=== PATIENT | male | born 1940 | race Caucasian/White ===

== ENCOUNTER 2018-04-25 10:45 | Observation (INO) | payer OTHER ==
--- NOTE | 2018-04-25 13:01 | PDOC ---
History of Present Illness - History of Present Illness Initial Comments: The patient is a 77 year old male, with a significant PMH of falls and seizures , who was brought in to the emergency department today by his family because they feel he is unsafe secondary to his diffuse weakness. Patient complains of progressively worsening diffuse weakness. Patient has not had any frequent falls, but is visibly bruised. He has an unsteady gait, and at baseline is supposed to ambulate with a rolling walker but repeatedly forgets to do so, which is the major source of his falling. The patient denies chest pain, shortness of breath, headache and dizziness. Denies fever, chills, nausea, vomit, diarrhea and constipation. Denies dysuria, frequency, urgency and hematuria. Allergies: NKA Past surgical history: None reported Social history: No reported PCP: Dr. Vigil 04/25/18 14:53 <Wendy Mondragon - Last Filed: 04/25/18 15:01> - General History Source: Patient Exam Limitations: No Limitations <Shayy Newton - Last Filed: 04/27/18 10:14> - General Chief Complaint: Weakness Stated Complaint: WEAKNESS Time Seen by Provider: 04/25/18 12:54 Past History <Wendy Mondragon - Last Filed: 04/25/18 15:01> - Past Medical History Cardiac Disorders: Yes (low) COPD: No Dementia: Yes Seizures: Yes - Suicide/Smoking/Psychosocial Hx Smoking History: Never smoked Information on smoking cessation initiated: No Hx Alcohol Use: No Drug/Substance Use Hx: No <Shayy Newton - Last Filed: 04/27/18 10:14> - Past Medical History Allergies/Adverse Reactions: Allergies Allergy/AdvReac Type Severity Reaction Status Date / Time Penicillins Allergy Verified 04/25/18 11:08 Home Medications: Ambulatory Orders Carbamazepine 200 mg PO BID 04/25/18 Review of Systems - Review of Systems Comments:: GENERAL/CONSTITUTIONAL: +Diffuse weakness. No fever or chills. HEAD, EYES, EARS, NOSE AND THROAT: No change in vision. No ear pain or discharge. No sore throat. CARDIOVASCULAR: No chest pain or shortness of breath. RESPIRATORY: No cough, wheezing, or hemoptysis. GASTROINTESTINAL: No nausea, vomiting, diarrhea or constipation. GENITOURINARY: No dysuria, frequency, or change in urination. MUSCULOSKELETAL: No joint or muscle swelling or pain. No neck or back pain. SKIN: +Multiple ecchymosis diffusely. No rash NEUROLOGIC: No headache, vertigo, loss of consciousness, or change in strength/ sensation. ENDOCRINE: No increased thirst. No abnormal weight change. HEMATOLOGIC/LYMPHATIC: No anemia, easy bleeding, or history of blood clots. ALLERGIC/IMMUNOLOGIC: No hives or skin allergy. 04/25/18 14:53 <Wendy Mondragon - Last Filed: 04/25/18 15:01> *Physical Exam - Vital Signs Last Vital Signs Temp Pulse Resp BP Pulse Ox 98.2 F 80 20 140/82 97 04/25/18 14:39 04/25/18 14:39 04/25/18 14:39 04/25/18 14:39 04/25/18 14:39 - Physical Exam Comments: GENERAL: The patient is awake and answering all quesitons. The patient is in no acute distress. HEAD: Normal with no signs of trauma. EYES: PERRLA, EOMI, sclera anicteric, conjunctiva clear. ENT: +Deformed nasal bridge secondary to multiple falls. Ears normal, nares patent, oropharynx clear without exudates. Moist mucous membranes. NECK: Normal range of motion, supple without lymphadenopathy, JVD, or masses. LUNGS: Breath sounds equal, clear to auscultation bilaterally. No wheezes, and no crackles. HEART:Regular rate and rhythm, normal S1 and S2 without murmur, rub or gallop. ABDOMEN: +Right chest wall deformity secondary to multiple falls. Soft, nontender, normoactive bowel sounds. No guarding, no rebound. No masses palpable. EXTREMITIES: +Right knee deformity secondary to multiple falls. 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 Able to move all extremities. No edema. No clubbing or cyanosis. No erythema, or tenderness. NEUROLOGICAL: Cranial nerves II through XII grossly intact. Normal speech. No focal neurological deficits. MUSCULOSKELETAL: Back non-tender to palpation, no CVA tenderness SKIN: +Multiple ecchymosis all over body. Warm, Dry, normal turgor, no rashes or lesions noted. 04/25/18 14:56 <Wendy Mondragon - Last Filed: 04/25/18 15:01> - Vital Signs Last Vital Signs Temp Pulse Resp BP Pulse Ox 98.1 F 88 19 145/88 97 04/25/18 11:04 04/25/18 11:04 04/25/18 11:04 04/25/18 11:04 04/25/18 11:04 <Shayy Newton - Last Filed: 04/27/18 10:14> Moderate Sedation - Procedure Monitoring Vital Signs: Procedure Monitoring Vital Signs Temperature 98.2 F 04/25/18 14:39 Pulse Rate 80 04/25/18 14:39 Respiratory Rate 20 04/25/18 14:39 Blood Pressure 140/82 04/25/18 14:39 O2 Sat by Pulse Oximetry (%) 97 04/25/18 14:39 <Wendy Mondragon - Last Filed: 04/25/18 15:01> - Procedure Monitoring Vital Signs: Procedure Monitoring Vital Signs Temperature 98.1 F 04/25/18 11:04 Pulse Rate 88 04/25/18 11:04 Respiratory Rate 19 04/25/18 11:04 Blood Pressure 145/88 04/25/18 11:04 O2 Sat by Pulse Oximetry (%) 97 04/25/18 11:04 <Shayy Newton - Last Filed: 04/27/18 10:14> ED Treatment Course - LABORATORY CBC & Chemistry Diagram: 04/25/18 13:54 04/25/18 13:54 - ADDITIONAL ORDERS Additional order review: Laboratory Results 04/25/18 04/25/18 13:54 13:54 PT with INR 12.50 INR 1.06 Sodium 139 Potassium 4.4 Chloride 107 Carbon Dioxide 27 Anion Gap 5 L BUN 20 H Creatinine 0.8 Creat Clearance w eGFR > 60 Random Glucose 174 H Calcium 8.4 L Total Bilirubin 0.2 AST 22 ALT 40 Alkaline Phosphatase 143 H Total Protein 6.8 Albumin 3.5 04/25/18 13:54 RBC 4.27 MCV 92.9 MCHC 35.0 RDW 13.6 MPV 7.9 Neutrophils % 62.0 Lymphocytes % 22.8 Monocytes % 8.2 Eosinophils % 6.0 H Basophils % 1.0 - RADIOLOGY Radiograph Interpretation: EXAM#: TYPE/EXAM: RESULT: [id number] RAD/CHEST X-RAY PORTABLE* Impression. No evidence of active pulmonary disease. Reported By: Fransisco Leal MD 04/25/18 13:18 EXAM#: TYPE/EXAM: RESULT: [id number] CT/HEAD CT WITHOUT CONTRAST IMPRESSION: No CT evidence of acute intracranial pathology. Status post left parietal craniectomy. Gyral calcifications are seen within the subjacent parietal lobe with associated contiguous encephalomalacia and mild to moderate focal atrophy - ? due to tuberous sclerosis, versus representing the sequela of previous injury, inflammation/infection. There is also less prominent left occipital gyral calcification. Sinonasal polyposis. Displaced bilateral nasal fractures which appear to be chronic. Correlate clinically. Reported By: Cesario Parr MD 04/25/18 14:49 04/25/18 15:01 <Wendy Mondragon - Last Filed: 04/25/18 15:01> - LABORATORY CBC & Chemistry Diagram: 04/25/18 13:54 04/25/18 13:54 <Shayy Newton - Last Filed: 04/27/18 10:14> Medical Decision Making - Medical Decision Making 04/25/18 14:15 Mr ross is a pleasant 77 yo M who presents to the ER with family due to concerns about his safety at home He has had frequent falls and repeatedly injures himself He denies fevers, chills, chest pain, palpitations He denies shortness of breath He denies focal weakness or numbness EKG - NSR, rate of 66 bpm, axis nml, no st elevation or depression, LVH Will do labs Will do UA Will do CT Will re assess 04/27/18 10:12 Laboratory Tests 04/25/18 04/25/18 04/25/18 13:54 13:54 13:54 WBC 7.6 Hgb 13.9 Hct 39.7 Plt Count 332 INR 1.06 BUN 20 H Creatinine 0.8 Urine Blood Urine Nitrite Ur Leukocyte Esterase 04/25/18 22:37 WBC Hgb Hct Plt Count INR BUN Creatinine Urine Blood Negative Urine Nitrite Negative Ur Leukocyte Esterase Negative CT - chronic changes, craniotomy, nasal bone deformities No ICH Will admit to dr Ibrahim Clinical Impression: frequent falls, initial presentation <Shayy Newton - Last Filed: 04/27/18 10:14> *DC/Admit/Observation/Transfer - Attestations Scribe Attestion: Documentation prepared by BRANDON Saldana, acting as medical surgical tech for Shayy Newton MD/DO. 04/25/18 14:56 <Wendy Mondragon - Last Filed: 04/25/18 15:01> - Discharge Dispostion Decision to Admit order: Yes <Shayy Newton - Last Filed: 04/27/18 10:14> Diagnosis at time of Disposition: Frequent falls - Discharge Dispostion Condition at time of disposition: Stable
[2018-04-25 14:04] LABS: HEMATOCRIT 39.7 % (35.4-49); HEMOGLOBIN 13.9 GM/dL (11.7-16.9); LYMPH % 22.8 % (8-40); MCH 32.5 pg (25.7-33.7); MEAN CELL VOLUME 92.9 fl (80-96); MEAN PLT VOLUME 7.9 fl (7.5-11.1); MONO % 8.2 % (3.8-10.2); PLATELET COUNT 332 K/MM3 (134-434); RBC 4.27 M/mm3 (4.00-5.60); RDW 13.6 % (11.9-15.9); WHITE BLOOD COUNT 7.6 K/mm3 (4.0-10.0)
[2018-04-25 14:20] LABS: INR 1.06 (0.83-1.09); PROTHROMBIN TIME (PATIENT) 12.5 SEC (9.7-13.0)
[2018-04-25 14:29] LABS: ALBUMIN 3.5 g/dl (3.4-5.0); ALK PHOS 143 U/L (45-117); ANION GAP 5 MMOL/L (8-16); BILIRUBIN,TOTAL 0.2 mg/dL (0.2-1); BLOOD UREA NITROGEN 20 mg/dL (7-18); CALCIUM 8.4 mg/dL (8.5-10.1); CHLORIDE 107 mmol/L (98-107); CO2 27 mmol/L (21-32); CREATININE 0.8 mg/dL (0.55-1.3); GLUCOSE,RANDOM 174 mg/dL (74-106); POTASSIUM 4.4 mmol/L (3.5-5.1); SGOT/AST 22 U/L (15-37); SGPT/ALT 40 U/L (13-61); SODIUM 139 mmol/L (136-145); TOT PROT 6.8 g/dl (6.4-8.2)
[2018-04-25 15:29] VITALS: BMI 22.2
[2018-04-25] MEDS ORDERED: FLU VACCINE QUAD 60 MCG/0.5 ML (MDV 18-19) IM ONE (15:31)
--- NOTE | 2018-04-25 15:45 | EKG ---
Test Reason : Blood Pressure : / mmHG Vent. Rate : 066 BPM Atrial Rate : 066 BPM P-R Int : 188 ms QRS Dur : 084 ms QT Int : 400 ms P-R-T Axes : 098 037 047 degrees QTc Int : 419 ms POOR DATA QUALITY, INTERPRETATION MAY BE ADVERSELY AFFECTED NORMAL SINUS RHYTHM MODERATE VOLTAGE CRITERIA FOR LVH, MAY BE NORMAL VARIANT BORDERLINE ECG NO PREVIOUS ECGS AVAILABLE Confirmed by SILVINO WHARTON, DAVID ([id number]) on 04/25/2018 3:45:48 PM Referred By: Confirmed By:DAVID DUBOIS MD
--- NOTE | 2018-04-25 17:27 | HP ---
Admitting History and Physical - Primary Care Physician PCP: Cecil Ibrahim - Admission Chief Complaint: weakness History of Present Illness: 77 year old male, with a significant PMH of falls and seizures, who was brought in to the emergency department today by his family because they feel he is unsafe secondary to his diffuse weakness. Patient complains of progressively worsening diffuse weakness. Patient has not had any frequent falls, but is visibly bruised. He has an unsteady gait, and at baseline is supposed to ambulate with a rolling walker but repeatedly forgets to do so, which is the major source of his falling. no fever or chills no cp or sob - Past Medical History [employer]: Yes: Seizure - Advance Directives Advance Directives: Yes: Health Care Proxy - Smoking History Smoking history: Never smoked - Alcohol/Substance Use Hx Alcohol Use: No Home Medications - Allergies Allergies/Adverse Reactions: Allergies Allergy/AdvReac Type Severity Reaction Status Date / Time Penicillins Allergy Verified 04/25/18 11:08 - Home Medications Home Medications: Ambulatory Orders Carbamazepine 200 mg PO BID 04/25/18 Physical Examination Vital Signs: Vital Signs Temperature 99.0 F 04/25/18 15:29 Pulse Rate 68 04/25/18 15:29 Respiratory Rate 18 04/25/18 15:29 Blood Pressure 152/74 04/25/18 15:29 O2 Sat by Pulse Oximetry (%) 98 04/25/18 15:38 Constitutional: Yes: No Distress Eyes: Yes: Conjunctiva Clear HENT: Yes: Atraumatic Neck: Yes: Supple Cardiovascular: Yes: Regular Rate and Rhythm Respiratory: Yes: CTA Bilaterally Gastrointestinal: Yes: Normal Bowel Sounds Extremities: Yes: WNL Edema: No Peripheral Pulses WNL: Yes Neurological: Yes: Alert, Oriented Labs: CBC, BMP 04/25/18 13:54 04/25/18 13:54 Imaging - Results Cat Scan: Report Reviewed Problem List - Problems (1) Frequent falls Assessment/Plan: pt eval family wants placement in [facility] Code(s): R29.6 - REPEATED FALLS Assessment/Plan Laboratory Results - last 24 hr 04/25/18 04/25/18 04/25/18 13:54 13:54 13:54 WBC 7.6 RBC 4.27 Hgb 13.9 Hct 39.7 MCV 92.9 MCH 32.5 MCHC 35.0 RDW 13.6 Plt Count 332 MPV 7.9 Absolute Neuts (auto) 4.7 Neutrophils % 62.0 Lymphocytes % 22.8 Monocytes % 8.2 Eosinophils % 6.0 H Basophils % 1.0 Nucleated RBC % 0 PT with INR 12.50 INR 1.06 Sodium 139 Potassium 4.4 Chloride 107 Carbon Dioxide 27 Anion Gap 5 L BUN 20 H Creatinine 0.8 Creat Clearance w eGFR > 60 Random Glucose 174 H Calcium 8.4 L Total Bilirubin 0.2 AST 22 ALT 40 Alkaline Phosphatase 143 H Total Protein 6.8 Albumin 3.5 Laboratory Tests 04/25/18 04/25/18 04/25/18 13:54 13:54 13:54 WBC 7.6 RBC 4.27 Hgb 13.9 Hct 39.7 MCV 92.9 MCH 32.5 MCHC 35.0 RDW 13.6 Plt Count 332 MPV 7.9 Absolute Neuts (auto) 4.7 Neutrophils % 62.0 Lymphocytes % 22.8 Monocytes % 8.2 Eosinophils % 6.0 H Basophils % 1.0 Nucleated RBC % 0 PT with INR 12.50 INR 1.06 Sodium 139 Potassium 4.4 Chloride 107 Carbon Dioxide 27 Anion Gap 5 L BUN 20 H Creatinine 0.8 Creat Clearance w eGFR > 60 Random Glucose 174 H Calcium 8.4 L Total Bilirubin 0.2 AST 22 ALT 40 Alkaline Phosphatase 143 H Total Protein 6.8 Albumin 3.5 Active Medications Generic Name Dose Route Start Last Admin Trade Name Freq PRN Reason Stop Dose Admin Acetaminophen 650 mg 04/25/18 23:03 04/25/18 22:50 Tylenol - PO 650 mg Q6H PRN Administration FEVER Carbamazepine 200 mg 04/25/18 22:00 04/26/18 10:09 Tegretol - PO 200 mg BID RADHA Administration
[2018-04-25] MEDS: carBAMazepine 200 MG TABLET PO SCH (21:01)
[2018-04-25 22:51] LABS: URINE APPEARANCE CLEAR; URINE BILIRUBIN NEGATIVE (<2.0 mg/dL); URINE COLOR YELLOW; URINE GLUCOSE (UA) NEGATIVE (NEGATIVE); URINE KETONE NEGATIVE (NEGATIVE); URINE LEUK ESTERASE NEGATIVE (NEGATIVE); URINE NITRITE NEGATIVE (NEGATIVE); URINE PROTEIN NEGATIVE (NEGATIVE)
[2018-04-25] MEDS ORDERED: ACETAMINOPHEN 325 MG TABLET (FP) PO PRN (23:03)
[2018-04-26] MEDS ORDERED: PT OWN MED DRAWER 7, Y5N ONE ×2 (10:07→21:10)
[2018-04-26] MEDS: carBAMazepine 200 MG TABLET PO SCH ×2 (10:09→21:45)
--- NOTE | 2018-04-26 16:26 | PN ---
Progress Note, Physician - Current Medication List Current Medications: Active Medications Acetaminophen (Tylenol -) 650 mg PO Q6H PRN PRN Reason: FEVER Last Admin: 04/25/18 22:50 Dose: 650 mg Carbamazepine (Tegretol -) 200 mg PO BID RADHA Last Admin: 04/26/18 10:09 Dose: 200 mg - Objective Vital Signs: Vital Signs Temperature 98.5 F 04/26/18 14:34 Pulse Rate 76 04/26/18 14:34 Respiratory Rate 18 04/26/18 14:34 Blood Pressure 141/63 04/26/18 14:34 O2 Sat by Pulse Oximetry (%) 96 04/26/18 10:00 Constitutional: Yes: No Distress HENT: Yes: Atraumatic Neck: Yes: Supple Cardiovascular: Yes: Regular Rate and Rhythm Respiratory: Yes: CTA Bilaterally Gastrointestinal: Yes: Normal Bowel Sounds Extremities: Yes: WNL Edema: No Neurological: Yes: Alert, Oriented Labs: CBC, BMP 04/25/18 13:54 04/25/18 13:54 INR, PTT INR 1.06 (0.83-1.09) 04/25/18 13:54 Problem List - Problems (1) Frequent falls Assessment/Plan: pt jonathan family wants placement in [facility] Code(s): R29.6 - REPEATED FALLS
--- NOTE | 2018-04-26 18:55 | DS ---
Physical Examination Vital Signs: Vital Signs Temperature 98.2 F 04/26/18 18:32 Pulse Rate 72 04/26/18 18:32 Respiratory Rate 18 04/26/18 18:32 Blood Pressure 141/72 04/26/18 18:32 O2 Sat by Pulse Oximetry (%) 96 04/26/18 10:00 Constitutional: Yes: No Distress HENT: Yes: Atraumatic Neck: Yes: Supple Cardiovascular: Yes: Regular Rate and Rhythm Respiratory: Yes: CTA Bilaterally Gastrointestinal: Yes: Normal Bowel Sounds Extremities: Yes: WNL Edema: No Neurological: Yes: Alert, Oriented Labs: CBC, BMP 04/25/18 13:54 04/25/18 13:54 Discharge Summary Reason For Visit: RECURRENT FALLS Current Active Problems Frequent falls (Acute) Condition: Stable - Instructions Referrals: Elizabeth Vigil [Primary Care Provider] - - Home Medications Comprehensive Discharge Medication List: Ambulatory Orders Carbamazepine 200 mg PO BID 04/25/18
[2018-04-27] MEDS: carBAMazepine 200 MG TABLET PO SCH ×2 (10:27→21:25)
--- NOTE | 2018-04-27 17:40 | PN ---
Progress Note, Physician - Current Medication List Current Medications: Active Medications Acetaminophen (Tylenol -) 650 mg PO Q6H PRN PRN Reason: FEVER Last Admin: 04/25/18 22:50 Dose: 650 mg Carbamazepine (Tegretol -) 200 mg PO BID RADHA Last Admin: 04/27/18 10:27 Dose: 200 mg - Objective Vital Signs: Vital Signs Temperature 97.8 F 04/27/18 14:42 Pulse Rate 66 04/27/18 14:42 Respiratory Rate 18 04/27/18 14:42 Blood Pressure 157/71 04/27/18 14:42 O2 Sat by Pulse Oximetry (%) 97 04/27/18 10:00 Constitutional: Yes: No Distress HENT: Yes: Atraumatic Neck: Yes: Supple Cardiovascular: Yes: Regular Rate and Rhythm Respiratory: Yes: CTA Bilaterally Gastrointestinal: Yes: Normal Bowel Sounds Extremities: Yes: WNL Edema: No Peripheral Pulses WNL: Yes Neurological: Yes: Alert, Oriented Labs: CBC, BMP 04/25/18 13:54 04/25/18 13:54 INR, PTT INR 1.06 (0.83-1.09) 04/25/18 13:54 Problem List - Problems (1) Frequent falls Assessment/Plan: pt eval for snf tomorrow Code(s): R29.6 - REPEATED FALLS
[2018-04-27] MEDS ORDERED: PT OWN MED DRAWER 7, Y5N ONE (21:19)
[2018-04-28] MEDS: carBAMazepine 200 MG TABLET PO SCH (09:14)
[2018-04-28 09:28] VITALS: BP 150/68; PULSE 64; TEMP 98.5
--- NOTE | 2018-04-28 13:08 | DS ---
Physical Examination Vital Signs: Vital Signs Temperature 98.5 F 04/28/18 09:24 Pulse Rate 64 04/28/18 09:24 Respiratory Rate 18 04/28/18 09:24 Blood Pressure 150/68 04/28/18 09:24 O2 Sat by Pulse Oximetry (%) 97 04/28/18 09:24 Constitutional: Yes: No Distress HENT: Yes: Atraumatic Neck: Yes: Supple Cardiovascular: Yes: Regular Rate and Rhythm Respiratory: Yes: CTA Bilaterally Extremities: Yes: WNL Edema: No Neurological: Yes: Alert, Oriented Labs: CBC, BMP 04/25/18 13:54 04/25/18 13:54 Discharge Summary Reason For Visit: RECURRENT FALLS Condition: Stable - Instructions Referrals: [facility] [Outside] Elizabeth Vigil [Primary Care Provider] - Disposition: CUSTODIAL FACILITY - Home Medications Comprehensive Discharge Medication List: Ambulatory Orders Carbamazepine 200 mg PO BID 04/25/18 ma snf
== END 2018-04-28 12:36 ==
LOC: JER 10:45 → INTOOBSV 14:20 → JERBED 14:20 → J5S 15:12
PROVIDERS: ADMIT Internal Medicine; ATTEND Internal Medicine
DX: R29.6 Repeated falls (principal); G40.909 Epilepsy, unspecified, not intractable, without status epilepticus; F03.90 Unspecified dementia, unspecified severity, without behavioral disturbance, psychotic disturbance, mood disturbance, and anxiety; Z88.0 Allergy status to penicillin
CPT/HCPCS: 36415; 70450-TC; 71045-TC-FY; 80053; 81003; 85025; 85610; 86850; 86900; 86901; 87086; 93005; 93010; 97116-GP; 97161-GP; 99283-25; G0378